=== PATIENT | male | born 1995 | race Caucasian/White ===

== ENCOUNTER 2023-10-11 08:30 | Outpatient (CLI) | payer OTHER, SELFPAY | END 2023-10-11 08:31 | disposition home or self-care (01) | LOC: NFLDREF 11:34 | PROVIDERS: PCP Family Medicine; Referring Provider Family Medicine; Visit Provider Family Medicine | DX: Z13.220 Encounter for screening for lipoid disorders (principal); Z13.228 Encounter for screening for other metabolic disorders | CPT/HCPCS: 80053; 80061 ==

== ENCOUNTER 2023-12-26 22:02 | Emergency (ER) | payer OTHER, SELFPAY ==
[2023-12-26 22:10] VITALS: BP 135/70; PULSE 85; RESP 20; TEMP 36.7; O2SAT 99; BMI 25.1
--- NOTE | 2023-12-26 22:22 | ED_ITS ---
HPI - Eye Problem General Date Seen: 12/26/23 Chief complaint: Eye Problems Stated complaint: Has something in his R eye Time Seen by Provider: 12/26/23 22:04 Source: patient Mode of arrival: ambulatory Limitations: no limitations History of Present Illness HPI Narrative: Patient is a 28-year-old male presenting for right eye discomfort. He states about to 30-40 minutes prior to arrival outdoor flung closed and he thought he got some debris into his eye. Since then he has been having discomfort to the eye feels like there is something in his eye. Denies any visual issues. No other concerns noted. Related Data Previous Rx's Medication Instructions Recorded escitalopram oxalate 10 mg tablet 10 mg PO QDAY #90 tabs 10/25/23 Allergies Allergy/AdvReac Type Severity Reaction Status Date / Time No Known Drug Allergies Allergy Verified 12/26/23 22:12 Review of Systems Narrative: Pertinent systems reviewed were negative unless stated HPI PFSH PFSH Medical History Anxiety ?F41.9 - Anxiety disorder, unspecified (ICD-10) Surgical History No significant past surgical history Social History What is your current living situation?: I presently have a place to live Problems where you live: no known problems In the past 12 months, utilities in danger of being shut off: no In past 12 months, lack of transportation kept you from medical appts, meetings, work, or getting things needed for daily living: no In the past 12 mos, have been you worried that your food would run out before you had money to buy more?: never true In the past 12 mos, the food you bought just didn't last and you didn't have money to buy more?: never true Smoking Status: Never smoker Second hand tobacco smoke exposure: No How often do you have a drink containing alcohol: monthly or less AUDIT-C Alcohol total score: 1 Non-prescribed substance use: marijuana (any form) How often does anyone, including family, friends and others, physically hurt you : never How often does anyone, including family, friends and others, insult or talk down to you: never How often does anyone, including family, friends and others, threaten you with harm: never How often does anyone, including family, friends and others, scream or curse at you: never Little interest or pleasure in doing things: several days Feeling down, depressed, or hopeless: several days Exam Narrative: Exam Narrative: Const: Well-nourished, Well-developed, in mild distress Eyes: PERRL, no conjunctival injection, and symmetrical lids. Fluoriscene eye exam performed showing corneal abrasion superior to iris. No foreign body seen on eyes or eyelids HENT: Atraumatic external nose and ears. Moist mucous membranes. Remove MSK:Extremities w/o deformity, Normal Active ROM Skin: Warm, Dry. No rashes or lesions. Neuro: Normal Muscle tone, No focal neurological deficits. Psych: Awake, Alert, & Oriented x3. Appropriate mood and affect. Const: Vital Signs, click to edit/add: Vital Signs - 24 hr 12/26/23 22:10 Temperature 98.0 F Pulse Rate [Right Pulse Oximeter] 85 Respiratory Rate 20 Blood Pressure [Ri ght Upper Arm] 135/70 Pulse Oximetry 99 Oxygen Delivery Me thod Room Air Course Vital Signs Vital signs: Initial Vital Signs Temperature 98.0 F 12/26/23 22:10 Temperature Source Temporal Artery Scan 12/26/23 22:10 Pulse Rate 85 12/26/23 22:10 Respiratory Rate 20 12/26/23 22:10 Blood Pressure 135/70 12/26/23 22:10 Blood Pressure Mean 91 12/26/23 22:10 Blood Pressure Position Sitting 12/26/23 22:10 Pulse Oximetry 99 12/26/23 22:10 Oxygen Delivery Method Room Air 12/26/23 22:10 Vital Signs Temperature 98.0 F 12/26/23 22:10 Pulse Rate 85 12/26/23 22:10 Respiratory Rate 20 12/26/23 22:10 Blood Pressure 135/70 12/26/23 22:10 Pulse Oximetry 99 12/26/23 22:10 Oxygen Delivery Method Room Air 12/26/23 22:10 Temperature 98.0 F 12/26/23 22:10 Pulse Rate 85 12/26/23 22:10 Respiratory Rate 20 12/26/23 22:10 Blood Pressure 135/70 12/26/23 22:10 Pulse Oximetry 99 12/26/23 22:10 Oxygen Delivery Method Room Air 12/26/23 22:10 MDM - Eye Problem MDM Narrative Medical decision making narrative: Patient is a 28-year-old male presenting for right eye discomfort. Did do an exam and was able to visualize a corneal abrasion. This is likely the cause of symptoms. The examination was done I do not see any retained foreign body in the eye or eyelids. He will be discharged home at this time. He is agreeable to this plan. No signs of corneal ulcer or other concerning abnormality Discharge Plan Discharge Clinical Impression: Corneal abrasion Qualifiers: Encounter type: initial encounter Laterality: right Qualified Code(s): S05.01XA - Injury of conjunctiva and corneal abrasion without foreign body, right eye, initial encounter Patient Disposition: Home, Self-Care Condition: Stable Instructions: Corneal Abrasion (DC) Additional Instructions: Symptoms will persist for the next few days. Do notice worsening symptoms or have any visual issues return to emergency department for new or worsening symptoms Prescriptions: No Action escitalopram oxalate 10 mg tablet 10 mg PO QDAY Qty: 90 3RF Follow Up/Referrals: Yan Oliver MD [Primary Care Provider] - Stand Alone Forms: [email or web address] Info Instructions
[2023-12-26] MEDS: FLUORESCEIN SODIUM TOPICAL STRIP 1 STRIP EYE-RIGHT (22:31)
[2023-12-26] MEDS: TETRACAINE 0.5% OPHTH 1 DROP EYE-RIGHT (22:31)
[2023-12-26 22:44] VITALS: BP 135/70; PULSE 85; RESP 20; TEMP 36.7; O2SAT 99
[2023-12-26 22:45] VITALS: BP 135/70; PULSE 85; RESP 20; TEMP 36.7
== END 2023-12-26 22:45 | disposition home or self-care (01) ==
LOC: ED 22:40
PROVIDERS: Emergency Provider Student in an Organized Health Care Education/Training Program; PCP Family Medicine
DX: S05.01XA Injury of conjunctiva and corneal abrasion without foreign body, right eye, initial encounter (principal)
CPT/HCPCS: 99282; 99283; A9270